=== PATIENT | male | born 1955 | race Hispanic/Latino ===

== ENCOUNTER 2019-12-14 19:56 | Emergency (ER) | payer OTHER ==
--- NOTE | 2019-12-14 20:41 | RAD REPORT ---
EXAM DESCRIPTION: RAD - Foot Left 3 View - 12/14/2019 8:24 pm CLINICAL HISTORY: Pain;Swelling COMPARISON: No comparisons FINDINGS: No fracture, dislocation or periosteal reaction. No acute or destructive bony process. Mi ld degenerative change at the first MTP joint and at the IP joints. No air or foreign body in the soft tissues. IMPRESSION: Negative left foot examination for acute finding.
--- NOTE | 2019-12-14 21:03 | ER ---
Nurse's Notes [facility] Name: Ronny Robledo Age: 64 yrs Sex: Male : 1955 Arrival Date: 12/14/2019 Time: 20:00 Bed 5 Private MD: Diagnosis: Contusion of left foot Presentation: 12/13 20:03 Chief complaint: Patient states: Kicked my dog on Tuesday morning, hurt my L foot. ca1 Reports swelling, pain and bruising on L foot. Coronavirus screen: Proceed with normal triage. Patient denies a cough. Patient denies shortness of breath or difficulty breathing. Patient denies measured and/or subjective temperature greater than 100.4F prior to today's visit. Patient denies travel on a cruise ship or to a country the [facility] currently lists as an affected area. Patient denies contact with known and/or suspected case of COVID-19. Ebola Screen: Patient negative for fever greater than or equal to 101.5 degrees Fahrenheit, and additional compatible Ebola Virus Disease symptoms Patient denies exposure to infectious person. Patient denies travel to an Ebola-affected area in the 21 days before illness onset. No symptoms or risks identified at this time. Initial Sepsis Screen: Does the patient meet any 2 criteria? No. Patient's initial sepsis screen is negative. Does the patient have a suspected source of infection? No. Patient's initial sepsis screen is negative. Risk Assessment: Do you want to hurt yourself or someone else? Patient reports no desire to harm self or others. Onset of symptoms was December 14, 2019. 20:03 Method Of Arrival: Ambulatory ca1 20:03 Acuity: RANJAN 4 ca1 Historical: - Allergies: 20:05 No Known Allergies; ca1 - PMHx: 20:05 Hypertension; High Cholesterol; ca1 - PSHx: 20:05 None; ca1 - Immunization history:: Adult Immunizations up to date. - Social history:: Smoking status: Patient denies any tobacco usage or history of. Screenin:18 Abuse screen: Denies threats or abuse. Denies injuries from another. Nutritional rv screening: No deficits noted. Tuberculosis screening: No symptoms or risk factors identified. Fall Risk None identified. Assessment: 20:13 General: Appears comfortable, Behavior is calm, cooperative. Pain: Complains of pain in rv left foot. Neuro: Level of Consciousness is awake, alert, obeys commands, Oriented to person, place, time, situation. Cardiovascular: Patient's skin is warm and dry. Respiratory: Airway is patent Respiratory effort is even, unlabored, Respiratory pattern is regular. Derm: Bruising that is dark purple, on left first toe and left second toe. Musculoskeletal: Swelling present in left foot. Vital Signs: 20:03 BP 135 / 73; Pulse 65; Resp 15 S; Temp 97.5(TE); Pulse Ox 100% on R/A; Weight 79.38 kg ca1 (R); Height 6 ft. 0 in. (182.88 cm) (R); Pain 3/10; 20:03 Body Mass Index 23.73 (79.38 kg, 182.88 cm) ca1 ED Course: 20:00 Patient arrived in ED. ds1 20:04 Triage completed. ca1 20:05 Arm band placed on right wrist. ca1 20:07 Maryanne Mckinney RN is Primary Nurse. tl2 20:08 Arsalan Lozano PA is PHCP. cp 20:08 Ramy Russell MD is Attending Physician. cp 20:12 Primary Nurse role handed off by Maryanne Mckinney RN rv 20:12 Leodan Duckworth RN is Primary Nurse. rv 20:18 Patient has correct armband on for positive identification. Bed in low position. Call rv light in reach. Side rails up X 1. Pulse ox on. NIBP on. 20:18 No provider procedures requiring assistance completed. Patient did not have IV access rv during this emergency room visit. 20:20 Ice pack to injury. rv 20:25 XRAY Foot LEFT 3 View In Process Unspecified. EDMS 21:26 Primary Nurse role handed off by Leodan Duckworth RN sg Administered Medications: No medications were administered Outcome: 21:02 Discharge ordered by MD. cp 21:25 Patient left the ED. sg Signatures: Dispatcher [employer] EDMS Dhiraj Diaz RN RN sg Sanford, Demi ds1 Arsalan Lozano PA PA cp Maryanne Mckinney RN RN tl2 Leodan Duckworth RN RN rv Nakia Means RN RN ca1 Corrections: (The following items were deleted from the chart) 21:26 21:26 Patient left the ED. sg sg
--- NOTE | 2019-12-14 21:03 | EDPHYS ---
Physician Documentation [facility] Name: Ronny Robledo Age: 64 yrs Sex: Male : 1955 Arrival Date: 12/14/2019 Time: 20:00 Bed 5 Private MD: ED Physician Ramy Russell HPI: 12/13 20:15 This 64 yrs old Male presents to ER via Ambulatory with complaints of Foot cp Injury. 20:15 The patient presents with an injury, pain, that is acute, swelling, tenderness. The cp complaints affect the dorsum of left foot. Context: resulted from kicking dog, the patient can fully bear weight, the patient is able to ambulate, with mild difficulty. Onset: The symptoms/episode began/occurred yesterday. 20:15 Associated signs and symptoms: Pertinent negatives numbness, tingling. cp Historical: - Allergies: 20:05 No Known Allergies; ca1 - PMHx: 20:05 Hypertension; High Cholesterol; ca1 - PSHx: 20:05 None; ca1 - Immunization history:: Adult Immunizations up to date. - Social history:: Smoking status: Patient denies any tobacco usage or history of. ROS: 20:20 MS/extremity: Positive for ecchymosis, pain, swelling, tenderness, Negative for cp deformity, paresthesias. 20:20 Constitutional: Negative for body aches, chills, fever. cp 20:20 Skin: Negative for cellulitis, rash. 20:20 All other systems are negative. cp Exam: 20:25 Constitutional: The patient appears in no acute distress, alert, awake, well developed, cp well nourished. 20:25 Musculoskeletal/extremity: Extremities: grossly normal except: noted in the dorsum of cp left foot and left second toe and left third toe: contusion, ecchymosis, pain, swelling, tenderness, There is no evidence of decreased ROM, deformity, Perfusion: the extremity is normally perfused throughout, Sensation intact. 20:25 Skin: cellulitis, is not appreciated, no rash present. intact and no open wounds noted. Vital Signs: 20:03 BP 135 / 73; Pulse 65; Resp 15 S; Temp 97.5(TE); Pulse Ox 100% on R/A; Weight 79.38 kg ca1 (R); Height 6 ft. 0 in. (182.88 cm) (R); Pain 3; 20:03 Body Mass Index 23.73 (79.38 kg, 182.88 cm) ca1 MDM: 20:10 Patient medically screened. cp 20:25 Differential diagnosis: dislocation, closed fracture, contusion. cp 21:01 Data reviewed: vital signs, nurses notes, radiologic studies, plain films. cp 21:01 Counseling: I had a detailed discussion with the patient and/or guardian regarding: the cp historical points, exam findings, and any diagnostic results supporting the discharge/admit diagnosis, radiology results, to return to the emergency department if symptoms worsen or persist or if there are any questions or concerns that arise at home. Response to treatment: the patient's symptoms have mildly improved after treatment, and as a result, I will discharge patient. ED course: VSS. Xrays negative for fracture. Recommend OTC tylenol and/or ibuprofen for pain. 12/13 20:10 Order name: XRAY Foot LEFT 3 View; Complete Time: 20:49 cp 12/13 20:49 Interpretation: Reviewed report. cp Administered Medications: No medications were administered Disposition: 21:30 Chart complete. 12/14 03:13 Co-signature as Attending Physician, Ramy Russell MD I agree with the assessment and tw4 plan of care. Disposition: 12/14/19 21:02 Discharged to Home. Impression: Contusion of left foot. - Condition is Stable. - Discharge Instructions: Foot Contusion. - Prescriptions for Ibuprofen 800 mg Oral Tablet - take 1 tablet by ORAL route every 8 hours As needed take with food; 30 tablet. - Medication Reconciliation Form, Thank You Letter, Antibiotic Education, Prescription Opioid Use form. - Follow up: Private Physician; When: 5 - 6 days; Reason: Worsening of condition. - Problem is new. - Symptoms have improved. Signatures: Dispatcher [employer] EDMS Dhiraj Diaz RN RN sg Arsalan Lozano PA PA cp Ramy Russell MD MD tw4 Nakia Means RN RN ca1 Corrections: (The following items were deleted from the chart) 12/13 21:25 21:02 12/14/2019 21:02 Discharged to Home. Impression: Contusion of left foot. sg Condition is Stable. Forms are Medication Reconciliation Form, Thank You Letter, Antibiotic Education, Prescription Opioid Use. Follow up: Private Physician; When: 5 - 6 days; Reason: Worsening of condition. Problem is new. Symptoms have improved. cp 21:26 21:25 12/14/2019 21:02 Discharged to Home. Impression: Contusion of left foot. sg Condition is Stable. Discharge Instructions: Foot Contusion. Prescriptions for Ibuprofen 800 mg Oral Tablet - take 1 tablet by ORAL route every 8 hours As needed take with food; 30 tablet. and Forms are Medication Reconciliation Form, Thank You Letter, Antibiotic Education, Prescription Opioid Use. Follow up: Private Physician; When: 5 - 6 days; Reason: Worsening of condition. Problem is new. Symptoms have improved. sg
[2019-12-14 21:32] VITALS: BP 135/73; TEMP 97.5; O2SAT 100
== END 2019-12-14 21:26 | disposition home or self-care (01) ==
LOC: ER 19:56
DX: S90.32XA Contusion of left foot, initial encounter (principal); W22.8XXA Striking against or struck by other objects, initial encounter; Y93.9 Activity, unspecified; Y92.9 Unspecified place or not applicable
CPT/HCPCS: 99283

== ENCOUNTER 2021-05-05 17:45 | Emergency (ER) | payer BC, OTHER ==
[2021-05-05] MEDS ORDERED: TETRACAINE HCL 0.5% 4ML OPTH ONE (18:36)
[2021-05-05] MEDS ORDERED: FLUORESCEIN SODIUM 1 MG/WRAP ONE (18:36)
--- NOTE | 2021-05-05 19:36 | EDPHYS ---
Physician Documentation [facility] Name: Ronny Robledo Age: 66 yrs Sex: Male : 1955 Arrival Date: 05/05/2021 Time: 17:47 Bed 13 Private MD: Juni Hatch B ED Physician Arsalan Riley HPI: 05/05 20:53 This 66 yrs old Male presents to ER via Ambulatory with complaints of Foreign kb Body In Eye - left. 20:53 The patient is experiencing foreign body sensation, pain, The patient sustained None. kb to the left eye, caused by an unknown mechanism. Onset: The symptoms/episode began/occurred last night. Duration: the symptoms are continuous. Aggravated by nothing. Alleviated by nothing. Associated signs and symptoms: Pertinent positives: None. Pertinent negatives: None. Patient does not utilize any form of vision correction. Severity of symptoms: At their worst the symptoms were moderate in the emergency department the symptoms are unchanged. The patient has not experienced similar symptoms in the past. The patient has not recently seen a physician. Pt reports he started feeling like something was in his left eye last night. States if he pulls his bottom eyelid down, away from his eye he can get some relief. . Historical: - Allergies: 18:13 No Known Allergies; ld1 - Home Meds: 18:13 atorvastatin oral [Active]; rosuvastatin oral [Active]; Hydrochlorothiazide Oral ld1 [Active]; - PMHx: 18:13 High Cholesterol; Hypertension; Glaucoma; ld1 - PSHx: 18:13 None; ld1 - Immunization history:: Adult Immunizations not up to date, Client reports receiving the 2nd dose of the Covid vaccine. - Social history:: Smoking status: Patient denies any tobacco usage or history of. Patient/guardian denies using alcohol. ROS: 20:37 Constitutional: Negative for fever, chills, and weight loss. kb 20:37 Eyes: Positive for foreign body sensation, pain. 20:37 All other systems are negative. Exam: 20:52 Constitutional: This is a well developed, well nourished patient who is awake, alert, kb and in no acute distress. Head/Face: Normocephalic, atraumatic. ENT: Moist Mucous membranes Respiratory: Respirations even and unlabored. No increased work of breathing, no retractions or nasal flaring. Skin: Warm, dry with normal turgor. Normal color. MS/ Extremity: Pulses equal, no cyanosis. Neurovascular intact. Full, normal range of motion. Neuro: Awake and alert, GCS 15, oriented to person, place, time, and situation. Moves all extremities. Normal gait. Psych: Awake, alert, with orientation to person, place and time. Behavior, mood, and affect are within normal limits. 20:52 Eyes: Corneas: abrasion, is not appreciated, foreign body, on the left, at 6 o'clock, an eyelash, a fluorescein strip employed to appreciate the findings. Vital Signs: 18:12 BP 131 / 79; Pulse 60; Resp 18; Temp 97.5(TE); Pulse Ox 99% on R/A; Weight 83.01 kg; ld1 Height 6 ft. 0 in. (182.88 cm); Pain 8/10; 18:39 BP 128 / 78; Pulse 64; Resp 18; Temp 97.8; Pulse Ox 98% on R/A; sl2 18:12 Body Mass Index 24.82 (83.01 kg, 182.88 cm) ld1 MDM: 18:29 Patient medically screened. kb 20:36 Data reviewed: vital signs, nurses notes. Data interpreted: Pulse oximetry: on room air kb is 98 %. Interpretation: normal. Counseling: I had a detailed discussion with the patient and/or guardian regarding: the historical points, exam findings, and any diagnostic results supporting the discharge/admit diagnosis, the need for outpatient follow up, an opthalmologist, to return to the emergency department if symptoms worsen or persist or if there are any questions or concerns that arise at home. 20:56 ED course: Bottom eyelash pointing inward, touching eye. removed. kb 05/05 18:30 Order name: Eye Tray; Complete Time: 18:51 kb 05/05 18:30 Order name: Fluoresene Opth strip; Complete Time: 18:51 kb Administered Medications: No medications were administered Disposition: 23:20 Co-signature as Attending Physician, Arsalan Riley MD I agree with the assessment and jatinder plan of care. Disposition Summary: 05/05/21 19:36 Discharge Ordered Location: Home kb Condition: Stable kb Diagnosis - Foreign body in cornea, left eye - eyelash removed kb Followup: kb - With: Emergency Department - When: As needed - Reason: Worsening of condition Followup: kb - With: Private Physician - When: 2 - 3 days - Reason: Recheck today's complaints, Continuance of care, Re-evaluation by your physician Discharge Instructions: - Discharge Summary Sheet kb - Eye Foreign Body, [id number] kb Forms: - Medication Reconciliation Form kb - Thank You Letter kb - Antibiotic Education kb - Prescription Opioid Use kb Signatures: Lilly Gautam, MITCHELL-Mishel MEDRANO-Arsalan Barroso MD MD cha Dibbern, Lauren, RN RN ld1
--- NOTE | 2021-05-05 19:36 | ER ---
Nurse's Notes [facility] Name: Ronny Robledo Age: 66 yrs Sex: Male : 1955 Arrival Date: 05/05/2021 Time: 17:47 Bed 13 Private MD: Juni Hatch B Diagnosis: Foreign body in cornea, left eye-eyelash removed Presentation: 05/05 18:12 Chief complaint: Patient states: left eye pain began yesterday evening, it felt like ld1 something was in my eye. It has progressively gotten worse. I attempted to use eye drops and flush out my eye, however it did not work. Coronavirus screen: At this time, the client does not indicate any symptoms associated with coronavirus-19. Ebola Screen: No symptoms or risks identified at this time. Initial Sepsis Screen: Does the patient meet any 2 criteria? No. Patient's initial sepsis screen is negative. Does the patient have a suspected source of infection? No. Patient's initial sepsis screen is negative. Risk Assessment: Do you want to hurt yourself or someone else? Patient reports no desire to harm self or others. Onset of symptoms was May 05, 2021. 18:12 Method Of Arrival: Ambulatory ld1 18:12 Acuity: RANJAN 4 ld1 Triage Assessment: 18:13 General: Appears in no apparent distress. comfortable, Behavior is calm, cooperative, ld1 appropriate for age. Pain: Complains of pain in left eye Pain does not radiate. Pain currently is 8 out of 10 on a pain scale. at worst was 10 out of 10 on a pain scale. Quality of pain is described as sharp, stabbing, Pain began 1 day ago. Is continuous. EENT: Eyes are tearing on outer aspect of conjuctiva of left eye, iris of left eye, inner aspect of conjunctiva of left eye and left inner canthus Reports pain in left eye. Neuro: Level of Consciousness is awake, alert, obeys commands, Oriented to person, place, time, situation, Appropriate for age. Cardiovascular: Capillary refill < 3 seconds Patient's skin is warm and dry. Respiratory: Airway is patent Respiratory effort is even, unlabored, Respiratory pattern is regular, symmetrical. GI: Abdomen is flat, non-distended. : No signs and/or symptoms were reported regarding the genitourinary system. Musculoskeletal: No signs and/or symptoms reported regarding the musculoskeletal system. Historical: - Allergies: 18:13 No Known Allergies; ld1 - Home Meds: 18:13 atorvastatin oral [Active]; rosuvastatin oral [Active]; Hydrochlorothiazide Oral ld1 [Active]; - PMHx: 18:13 High Cholesterol; Hypertension; Glaucoma; ld1 - PSHx: 18:13 None; ld1 - Immunization history:: Adult Immunizations not up to date, Client reports receiving the 2nd dose of the Covid vaccine. - Social history:: Smoking status: Patient denies any tobacco usage or history of. Patient/guardian denies using alcohol. Screenin:19 Abuse screen: Denies threats or abuse. Nutritional screening: No deficits noted. sl2 Tuberculosis screening: No symptoms or risk factors identified. Never had TB. Possible symptoms: None Risk factors: None. Fall Risk None identified. No fall in past 12 months (0 pts). No secondary diagnosis (0 pts). No IV (0 pts). Ambulatory Aid- None/Bed Rest/Nurse Assist (0 pts). Gait- Normal/Bed Rest/Wheelchair (0 pts) Mental Status- Oriented to own ability (0 pts). Assessment: 18:19 Reassessment: Patient presents with c/o left eye pain - onset yesterday, feels like sl2 foreign body present to eye - no relief after flushing the eye and using OTC eye drops - pain worst today. 18:19 General: Appears in no apparent distress. comfortable, well groomed, well developed, sl2 Behavior is calm, cooperative, Reports left eye pain. Pain: Complains of pain in left inner canthus and inner aspect of conjunctiva of left eye and iris of left eye and outer aspect of conjuctiva of left eye and left eye Pain does not radiate. Pain currently is 5 out of 10 on a pain scale. at worst was 9 out of 10 on a pain scale. level that patient reports is acceptable is 0 out of 10 on a pain scale. Quality of pain is described as burning, aching, sharp, Pain began 1 day ago. Neuro: No deficits noted. Level of Consciousness is awake, alert, obeys commands, Oriented to person, place, time, situation, Ventilating Equipment Installer are equal bilaterally Moves all extremities. Gait is steady, Speech is normal, Facial symmetry appears normal. Cardiovascular: No deficits noted. Respiratory: No deficits noted. Respiratory: Reports Airway is patent Trachea midline Respiratory effort is even, unlabored. GI: No deficits noted. : No deficits noted. No signs and/or symptoms were reported regarding the genitourinary system. EENT: No deficits noted. No signs and/or symptoms were reported regarding the EENT system. Derm: No deficits noted. No signs and/or symptoms reported regarding the dermatologic system. Musculoskeletal: No deficits noted. No signs and/or symptoms reported regarding the musculoskeletal system. Vital Signs: 18:12 BP 131 / 79; Pulse 60; Resp 18; Temp 97.5(TE); Pulse Ox 99% on R/A; Weight 83.01 kg; ld1 Height 6 ft. 0 in. (182.88 cm); Pain 8/10; 18:39 BP 128 / 78; Pulse 64; Resp 18; Temp 97.8; Pulse Ox 98% on R/A; sl2 18:12 Body Mass Index 24.82 (83.01 kg, 182.88 cm) ld1 ED Course: 17:47 Patient arrived in ED. am2 17:47 Juni Hatch MD is Private Physician. am2 18:13 Triage completed. ld1 18:13 Arm band placed on right wrist. ld1 18:19 Patient has correct armband on for positive identification. Bed in low position. sl2 18:19 Assist provider with eye exam. Patient did not have IV access during this emergency sl2 room visit. 18:29 Loren Case RN is Primary Nurse. sl2 18:29 Lilly Gaut[facility]-C [facility] kb 18:29 Arsalan Riley MD is Attending Physician. kb 19:34 Nurse Practitioner and/or Physician Dance Studio Manager to see patient. iw Administered Medications: No medications were administered Outcome: 19:36 Discharge ordered by MD. kb 19:45 Discharged to home ambulatory. iw 19:45 Condition: stable 19:45 Discharge instructions given to patient, Instructed on discharge instructions, follow up and referral plans. Demonstrated understanding of instructions, follow-up care. 20:05 Patient left the ED. iw Signatures: Lilly Gautam FNP-C FNP-Debi Mercedes RN RN Reta Peralta am2 Chanda Shetty RN RN ld1 Loren Case RN RN sl2
[2021-05-05 20:45] VITALS: BP 128/78; TEMP 97.8; O2SAT 98
--- OUTSIDE RECORDS SUMMARY | 2021-05-16 08:26 | XMS REPORT | Continuity of Care Document ---
:1955 Author Organization [facility] t Address [address] [place] [address] [address]. [address] [place] [address] Care Team Providers Name Role Phone BASIL BERRY Attending Clinician Unavailable Problems This patient has no known problems. Allergies, Adverse Reactions, Alerts This patient has no known allergies or adverse reactions. Medications This patient has no known medications. Procedures This patient has no known procedures. Encounters Start End Encounter Admission Attending Care Care Encounter Source Date/Time Date/Time Type Type Clinicians Facility Department ID 2021-03-24 2021-03-24 Outpatient [facility] [id number] [place] 00:00:00 00:00:00 [facility]IL [address] 2021-02-10 2021-02-10 Outpatient [facility] [id number] [place] 00:00:00 00:00:00 BASIL [address] 2020-08-05 2020-08-05 Outpatient [facility] [id number] [place] 00:00:00 00:00:00 BASIL [address] 2020-02-13 2020-02-13 Outpatient [facility] [id number] [place] 00:00:00 00:00:00 BASIL [address] 2019-11-20 2019-11-20 Outpatient [facility] [id number] [place] 00:00:00 00:00:[address] BASIL [address] Results This patient has no known results.
== END 2021-05-05 20:05 | disposition home or self-care (01) ==
LOC: ER 17:45
PROC: 08C9XZZ Extirpation of Matter from Left Cornea, External Approach (ICD-10-PCS; principal; 2021-05-05)
DX: T15.02XA Foreign body in cornea, left eye, initial encounter (principal); I10 Essential (primary) hypertension; E78.00 Pure hypercholesterolemia, unspecified
CPT/HCPCS: 99283